=== PATIENT | female | born 1995 | race African-American/Black ===

== ENCOUNTER 2022-08-12 15:44 | Emergency (ER) | payer BC, MEDICAID ==
[2022-08-12 16:35] LABS: ANION GAP 6.6 meq/L (7-15); CHLORIDE,CL 102 mmol/L (98-107); SODIUM,NA 137 mmol/L (136-145)
[2022-08-12 16:41] LABS: ESTIMATED GFR 107 mL/min (>=60)
== END 2022-08-12 17:28 | disposition home or self-care (01) ==
LOC: LL.ED 15:44
DX: R10.12 Left upper quadrant pain (principal); R10.32 Left lower quadrant pain; F17.210 Nicotine dependence, cigarettes, uncomplicated
CPT/HCPCS: 36415; 74019; 74176; 80053; 81001; 81025; 83605; 85025; 99284

== ENCOUNTER 2022-08-14 01:40 | Emergency (ER) | payer BC, MEDICAID | END 2022-08-14 02:30 | disposition left against medical advice (07) | LOC: LL.ED 01:40 | DX: R10.9 Unspecified abdominal pain (principal); F17.210 Nicotine dependence, cigarettes, uncomplicated | CPT/HCPCS: 99283 ==

== ENCOUNTER 2023-02-14 16:52 | Emergency (ER) | payer BC ==
[2023-02-14 18:01] LABS: CORONAVIRUS COVID-19 NAA NEGATIVE (NEGATIVE); RESPIRATORY SYNCYTIAL VIR NAA NEGATIVE (NEGATIVE)
== END 2023-02-14 17:56 | disposition home or self-care (01) ==
LOC: LL.ED 16:52
DX: J30.9 Allergic rhinitis, unspecified (principal); Z20.822 Contact with and (suspected) exposure to COVID-19
CPT/HCPCS: 0241U; 81003; 87081; 87430; 99283

== ENCOUNTER 2023-07-12 00:04 | Emergency (ER) | payer BC ==
[2023-07-12] MEDS ORDERED: Sodium Chloride 0.9% 10 ML Syringe FLUSH PRN (00:15)
[2023-07-12 00:34] LABS: BASOPHILS ABSOLUTE AUTO 0.03 K/uL (0.00-0.20); BASOPHILS PERCENT AUTO 0.2 % (0.0-2.0); EOSINOPHILS ABSOLUTE AUTO 0.15 K/uL (0.00-0.50); EOSINOPHILS PERCENT AUTO 1.2 % (0.0-5.0); HEMATOCRIT 33.3 % (34.0-46.0); HEMOGLOBIN 11.6 g/dL (11.7-15.5); LYMPHOCYTES ABSOLUTE AUTO 2.85 K/uL (0.50-3.50); LYMPHOCYTES PERCENT AUTO 22.6 % (10.0-50.0); MEAN CORPUSCULAR HEMOGLOBIN 30.5 pg (28.2-33.3); MEAN CORPUSCULAR HGB CONC 34.8 g/dL (31.7-36.0); MEAN CORPUSCULAR VOLUME 87.6 fL (84.0-98.0); MONOCYTES ABSOLUTE AUTO 0.81 K/uL (0.00-1.00); MONOCYTES PERCENT AUTO 6.4 % (2.0-14.0); NEUTROPHILS ABSOLUTE AUTO 8.76 K/uL (1.40-7.00); NEUTROPHILS PERCENT AUTO 69.6 % (45.0-80.0); PLATELET COUNT,PLT 349 K/uL (150-350); RED CELL DISTRIBUTION WIDTH 12.6 % (11.2-14.1); WHITE BLOOD CELL COUNT,WBC 12.6 K/uL (4.0-10.2)
[2023-07-12] MEDS ORDERED: Diazepam 5 MG Tab PO ONE (00:50)
[2023-07-12 00:56] LABS: BLOOD UREA NITROGEN,BUN 7 mg/dL (7-18); CALCIUM 9.1 mg/dL (8.5-10.1); CARBON DIOXIDE,CO2 23.6 mmol/L (21.0-32.0); CHLORIDE,CL 100 mmol/L (98-107); CREATININE 0.69 mg/dL (0.51-1.17); GLUCOSE RANDOM 86 mg/dL (70-99); MAGNESIUM 1.8 mg/dL (1.8-2.4); POTASSIUM,K 3.2 mmol/L (3.5-5.1); SODIUM,NA 136 mmol/L (136-145)
[2023-07-12 01:03] LABS: ANION GAP 15.6 meq/L (7-15); ESTIMATED GFR 122 mL/min (>=60)
[2023-07-12 01:06] VITALS: BP 133/77; PULSE 90
[2023-07-12] MEDS: ClonazePAM 0.5 MG Tab PO ONE (01:10)
[2023-07-12] MEDS: Potassium Chloride 20 MEQ Tab.ER PO ONE (01:11)
== END 2023-07-12 01:17 | disposition home or self-care (01) ==
LOC: LL.ED 00:04
DX: O9A.211 Injury, poisoning and certain other consequences of external causes complicating pregnancy, first trimester (principal); R11.0 Nausea; T50.995A Adverse effect of other drugs, medicaments and biological substances, initial encounter; Z3A.01 Less than 8 weeks gestation of pregnancy; Z87.891 Personal history of nicotine dependence
CPT/HCPCS: 36415; 80048; 83735; 85025; 99283; A9270-GY

== ENCOUNTER 2023-11-14 07:40 | Emergency (ER) | payer BC ==
[2023-11-14] MEDS ORDERED: Sodium Chloride 0.9% 10 ML Syringe FLUSH PRN (08:04)
[2023-11-14 08:10] LABS: BASOPHILS ABSOLUTE AUTO 0.01 K/uL (0.00-0.20); BASOPHILS PERCENT AUTO 0.1 % (0.0-2.0); EOSINOPHILS ABSOLUTE AUTO 0.14 K/uL (0.00-0.50); EOSINOPHILS PERCENT AUTO 1.5 % (0.0-5.0); HEMATOCRIT 30.5 % (34.0-46.0); HEMOGLOBIN 10.2 g/dL (11.7-15.5); LYMPHOCYTES PERCENT AUTO 29.1 % (10.0-50.0); MEAN CORPUSCULAR HEMOGLOBIN 29.4 pg (28.2-33.3); MEAN CORPUSCULAR HGB CONC 33.4 g/dL (31.7-36.0); MEAN CORPUSCULAR VOLUME 87.9 fL (84.0-98.0); MONOCYTES ABSOLUTE AUTO 0.56 K/uL (0.00-1.00); NEUTROPHILS ABSOLUTE AUTO 5.88 K/uL (1.40-7.00); NEUTROPHILS PERCENT AUTO 63.3 % (45.0-80.0); PLATELET COUNT,PLT 273 K/uL (150-350); RED BLOOD CELL COUNT 3.47 M/uL (3.77-5.09); RED CELL DISTRIBUTION WIDTH 12.3 % (11.2-14.1); WHITE BLOOD CELL COUNT,WBC 9.3 K/uL (4.0-10.2)
[2023-11-14 08:16] LABS: APPEARANCE,URINE SLIGHTLY CLOUDY; BILIRUBIN,URINE NEGATIVE (NEGATIVE); COLOR,URINE YELLOW; GLUCOSE,URINE NEGATIVE (NEGATIVE); KETONES,URINE NEGATIVE (NEGATIVE); LEUKOCYTE ESTERASE,URINE SMALL (NEGATIVE); NITRITE,URINE NEGATIVE (NEGATIVE); OCCULT BLOOD,URINE NEGATIVE (NEGATIVE); PROTEIN,URINE TRACE mg/dL (NEGATIVE); UROBILINOGEN,URINE 0.2 E.U./dL (0.2-1.0)
[2023-11-14 08:19] LABS: ALANINE AMINOTRANSFERASE,ALT 42 U/L (12-78); ALBUMIN 2.9 g/dL (3.4-5.0); ALKALINE PHOSPHATASE 101 IU/L (46-116); ASPARTATE AMNIOTRANSFERASE,AST 55 U/L (15-37); BILIRUBIN TOTAL 0.3 mg/dL (0.2-1.0); BLOOD UREA NITROGEN,BUN 9 mg/dL (7-18); CALCIUM 9.4 mg/dL (8.5-10.1); CARBON DIOXIDE,CO2 24.8 mmol/L (21.0-32.0); CHLORIDE,CL 103 mmol/L (98-107); CREATININE 0.78 mg/dL (0.51-1.17); EST CRCL DRUG DOSING (CG) 105.35 mL/min; GLUCOSE RANDOM 88 mg/dL (70-99); LIPASE 33 U/L (16-77); MAGNESIUM 1.7 mg/dL (1.8-2.4); POTASSIUM,K 3.3 mmol/L (3.5-5.1); PROTEIN TOTAL,TP 7.3 g/dL (6.4-8.2); SODIUM,NA 138 mmol/L (136-145)
[2023-11-14 08:25] LABS: AMORPHOUS SEDIMENT,URINE MANY /HPF (0/HPF); BACTERIA,URINE FEW /HPF (NONE TO FEW); EPITHELIAL CELLS,URINE MANY /LPF; MUCUS,URINE FEW /LPF (NEGATIVE); RBC,URINE 0-5 /HPF
[2023-11-14 08:35] LABS: ANION GAP 13.5 meq/L (7-15); ESTIMATED GFR 107 mL/min (>=60)
[2023-11-14] MEDS ORDERED: Morphine 2 MG/ML SYRINGE IVPUSH ONE (08:40)
[2023-11-14] MEDS ORDERED: Ondansetron 4 MG/2 ML SDV IVPUSH ONE (08:40)
[2023-11-14] MEDS ORDERED: Potassium Bicarbonate/Cit Ac 20 MEQ Effervescent Tab PO ONE (08:59)
[2023-11-14] MEDS ORDERED: Aluminum Hydroxide/Magnesium Hydroxide/Simethicone Susp 30 ML Cup PO ONE (09:12)
[2023-11-14] MEDS ORDERED: Lidocaine 2% Viscous Solution 15 ML UD PO ONE (09:12)
== END 2023-11-14 09:55 ==
LOC: LL.ED 07:40
DX: O99.891 Other specified diseases and conditions complicating pregnancy (principal); R10.11 Right upper quadrant pain; Z3A.25 25 weeks gestation of pregnancy; Z88.8 Allergy status to other drugs, medicaments and biological substances
CPT/HCPCS: 36415; 80053; 81001; 83690; 83735; 84484; 85025; 87086; 93005; 96374; 96375; 99285-25; A9270-GY; J2270; J2405; J3490